=== PATIENT | male | born 1985 | race Caucasian/White ===

== ENCOUNTER 2021-07-14 15:05 | Emergency (ER) | payer OTHER | END 2021-07-14 18:48 | disposition home or self-care (01) | LOC: ER1 15:05 | DX: S01.01XA Laceration without foreign body of scalp, initial encounter (principal); Z88.8 Allergy status to other drugs, medicaments and biological substances; V86.59XA Driver of other special all-terrain or other off-road motor vehicle injured in nontraffic accident, initial encounter | CPT/HCPCS: 12001; 70450; 72125; 99283 ==